=== PATIENT | female | born 1980 | race Caucasian/White ===

== ENCOUNTER 2017-04-11 13:55 | Outpatient (CLI) | payer OTHER | END 2017-04-11 13:56 | disposition home or self-care (01) | LOC: BICULT 13:55 | PROVIDERS: ATTEND Obstetrics & Gynecology | DX: N63.10 Unspecified lump in the right breast, unspecified quadrant (principal) ==

== ENCOUNTER 2018-03-11 17:25 | Emergency (ER) | payer OTHER | END 2018-03-11 17:41 | disposition home or self-care (01) | LOC: SCSER 17:25 | DX: S09.90XA Unspecified injury of head, initial encounter (principal); E03.9 Hypothyroidism, unspecified; R73.03 Prediabetes; F17.210 Nicotine dependence, cigarettes, uncomplicated; Z79.84 Long term (current) use of oral hypoglycemic drugs; Z79.899 Other long term (current) drug therapy; W55.32XA Struck by other hoof stock, initial encounter | CPT/HCPCS: 99283 ==

== ENCOUNTER 2020-05-19 12:42 | Day surgery (SDC) | payer OTHER, SELFPAY ==
[2020-05-19] MEDS ORDERED: Boostrix 0.5 ML (Tdap) VIAL ONE (14:06)
[2020-05-19] MEDS ORDERED: Levofloxacin 500 mg/D5W 100 ml Premix Bag ONE (15:19)
[2020-05-19] MEDS ORDERED: Clindamycin/D5W 900 mg/50 ml Premix Bag ONE (15:20)
[2020-05-19 15:46] LABS: SARS-CoV-2 NAA Rapid Test Not Detected (NotDetected)
[2020-05-19] MEDS ORDERED: Bupivacaine PF 0.5% 30 ML VIAL ONE (20:57)
[2020-05-19] MEDS ORDERED: Sodium Chloride 0.9% 30 ML ONE (20:58)
[2020-05-19] MEDS ORDERED: Bacitracin Zinc Ointment 30 gm TUBE ONE (20:58)
[2020-05-19] MEDS ORDERED: Fentanyl 100 MCG/2 ML VIAL ONE (21:28)
[2020-05-19] MEDS ORDERED: Dexamethasone 20 MG/5 ML VIAL ONE (21:44)
[2020-05-19] MEDS ORDERED: Ondansetron PF 4 MG/2 ML Vial ONE (21:44)
[2020-05-19] MEDS ORDERED: Lidocaine 1% PF 5 ML VIAL ONE (21:44)
[2020-05-19] MEDS ORDERED: PROPOFOL 200 MG/20 ML VIAL ONE (21:44)
[2020-05-19] MEDS ORDERED: Ketorolac Tromethamine 30 MG/ML VIAL ONE (23:53)
== END 2020-05-20 00:25 | disposition home or self-care (01) ==
LOC: ERS 12:42 → SDC/OP 13:40
PROVIDERS: ATTEND Orthopaedic Surgery Hand Surgery
PROC: 0LQ70ZZ Repair Right Hand Tendon, Open Approach (ICD-10-PCS; principal; 2020-05-20)
DX: S66.322A Laceration of extensor muscle, fascia and tendon of right middle finger at wrist and hand level, initial encounter (principal); X58.XXXA Exposure to other specified factors, initial encounter
CPT/HCPCS: 76000; 90471; 90715; 96365; 96367; J1100; J1885; J1956; J2405; J2704; J3010; J3490; S0020; U0002